=== PATIENT | male | born 1945 | race Caucasian/White ===

== ENCOUNTER 2023-04-25 10:21 | Outpatient (REF) | payer MEDICARE, SELFPAY ==
[2023-04-25 10:15] VITALS: BP 145/98; PULSE 88; RESP 18; TEMP 35.8; O2SAT 95
[2023-04-25 10:32] VITALS: BMI 34.2
[2023-04-25 10:33] VITALS: BP 145/98; PULSE 88; RESP 17; TEMP 35.8; O2SAT 95
[2023-04-25 12:32] VITALS: BMI 34.2
[2023-04-25 13:11] VITALS: BP 146/85; PULSE 82; O2SAT 96
== END 2023-04-25 10:22 | disposition home or self-care (01) ==
LOC: HO.MS 10:21
PROVIDERS: PCP Neuromusculoskeletal Medicine, Sports Medicine; Visit Provider Ophthalmology
DX: C44.319 Basal cell carcinoma of skin of other parts of face (principal)
CPT/HCPCS: 88305; 88331; 88332